=== PATIENT | male | born 1950 | race Caucasian/White ===

== ENCOUNTER 2024-11-04 06:33 | Day surgery (SDC) | payer OTHER, SELFPAY ==
--- NOTE | 2024-11-01 16:13 | HPS.HSE ---
Family Physician
-
Family Physician: Lupis Obrien NP
Chief Complaint
-
SANIA
History of Present Illness
HISTORY OF PRESENT ILLNESS: 73-year-old male with paroxysmal
atrial fibrillation which is symptomatic. His symptoms include
palpitations, shortness of breath and fatigue. He has had several
prior cardioversion but failed to maintain long-term sinus rhythm.
This will be his first PVI. Past medical history is significant for
GERALD to LAD in 2021, hypertension, hyperlipidemia, obesity, active
tobacco abuse, osteoarthritis and suspected sleep apnea. He has
chronic diastolic heart failure with preserved EF. Most recent echo
August 16, 2024 showing LVEF 50-55 percent, with mild to moderate
mitral regurgitation and no significant valve disease. Nuclear
stress test August 28, 2024 at [facility], did not show evidence
of ischemia. He has been admitted to [facility] multiple
occasions with AFib/RVR including October 2023, at which time
arrhythmia precipitated CHF exacerbation. He has failed sotalol and
is currently maintained on amiodarone with metoprolol and
anticoagulated with Eliquis. His [id number] score is 4 secondary
to age, CHF, hypertension and CAD. Chest CT performed
at pre-admission testing identified possible RUSLAN thrombus. SANIA
will be performed prior to PVI to definitively exclude clot.
Medical History
Past Medical History
Past Medical History: Reports Other (see below)
Additional Past Medical History:
1. CAD, GERALD-LAD 08/2021.
2. HFpEF, EF 50-55 percent by echo 08/2024.
3. Obesity, BMI 36.0.
4. Hypertension.
5. Hyperlipidemia.
6. Active tobacco abuse.
7. Suspected obstructive sleep apnea.
8. Osteoarthritis.
9. GERD.
10. Anxiety/depression.
11. IBS, constipation.
.
Past Surgical History: Reports Other (see below)
Additional Past Surgical History:
1. Coronary stents, GERALD to LAD 08/2021.
2. Appendectomy.
3. Right total hip arthroplasty.
Social History
Tobacco: Smoker
Alcohol: Occasional
Family History
Family History: Not pertinent
Allergies / Home Medications
Allergies reflects when Allergies were last updated in [facility].
Home Medications with original date entered in [facility]
Allergy/Medication List:
HOME MEDICATIONS:
1. Amiodarone 200 mg daily.
2. Amlodipine 2.5 mg daily.
3. Eliquis 5 mg b.i.d.
4. Atorvastatin 40 mg at bedtime.
5. Citalopram 10 mg at bedtime.
6. Plavix 75 mg daily.
7. Furosemide 20 mg b.i.d.
8. Linzess 145 mcg daily.
9. Losartan 100 mg daily.
10. Metoprolol succinate 50 mg daily.
11. Pantoprazole 40 mg daily.
ALLERGIES: No known drug allergies
Review of Systems
-
A 12 point ROS was completed and negative except as noted: Yes
Physical Exam
Physical Exam
General: Well Developed and Well Nourished
HEENT: NormoCephalic
Respiratory: Clear and Decreased Breath Sounds
Cardiac: Irregular Rhythm (Heart irregular regular. Rate 82, without murmurs, rubs, or gallops. Carotids without audible bruits. Pulses equal 2+ bilaterally. No peripheral edema. CAROTIDS: Without bruits. )
GI: Soft and Normal Bowel Sounds
Skin: Warm and Dry
Neuro: AO x 3, No Motor Deficits and Cranial Nerves Intact
Impression/Plan
-
DIAGNOSTIC STUDIES 10/31/2024.:
EKG: Atrial fibrillation, ventricular rate 81.
Chest CT: possible RUSLAN thrombus
LABORATORY STUDIES: White blood count 8.6, hemoglobin 15.0,
platelets 211, INR 1.19.
[id number] score 4.
Age +1.
CHF +1.
Hypertension +1.
CAD +1.
IMPRESSION AND PLAN: Persistent symptomatic atrial fibrillation,
scheduled for EP study and ablation. Due to potential RUSLAN thrombus
as identified on CT, we will perform SANIA to definitively exclude clot
prior to EP study. Benefits and risks been
discussed with the patient. These risks are understood and he
wishes to proceed.
== END 2024-11-04 09:21 | disposition home or self-care (01) ==
LOC: CATH 06:33
PROVIDERS: ATTENDING PHYSICIAN Internal Medicine Cardiovascular Disease; FAMILY PHYSICIAN Nurse Practitioner Adult Health; OTHER PHYSICIAN Internal Medicine Interventional Cardiology
DX: I48.0 Paroxysmal atrial fibrillation (principal); I08.3 Combined rheumatic disorders of mitral, aortic and tricuspid valves; I25.10 Atherosclerotic heart disease of native coronary artery without angina pectoris; Z95.5 Presence of coronary angioplasty implant and graft; I11.0 Hypertensive heart disease with heart failure; I50.32 Chronic diastolic (congestive) heart failure; E78.5 Hyperlipidemia, unspecified; E66.9 Obesity, unspecified; Z68.36 Body mass index [BMI] 36.0-36.9, adult; G47.33 Obstructive sleep apnea (adult) (pediatric); F17.200 Nicotine dependence, unspecified, uncomplicated; K21.9 Gastro-esophageal reflux disease without esophagitis; F32.A Depression, unspecified; K58.9 Irritable bowel syndrome, unspecified; M19.90 Unspecified osteoarthritis, unspecified site; Z79.01 Long term (current) use of anticoagulants; Z79.02 Long term (current) use of antithrombotics/antiplatelets
CPT/HCPCS: 93312; 93320; 93325

== ENCOUNTER 2024-11-06 05:54 | Day surgery (SDC) | payer OTHER, SELFPAY ==
[2024-10-31 10:00] VITALS: BMI 36.0
[2024-10-31 10:27] LABS: % Basophils 0.6 % (0-2); % Eosinophils 1.6 % (0-6); % Immature Granulocytes 0.4 % (0-0.5); % Lymphocytes 25.7 % (20.5-51.1); % Monocytes 8.2 % (1.7-9.3); % Neutrophils 63.5 % (42.2-75.2); Absolute Basophils 0.1 10^3/uL (0-0.2); Absolute Eosinophils 0.1 10^3/uL (0-0.7); Absolute Lymphocytes 2.2 10^3/uL (1.2-3.4); Absolute Monocytes 0.7 10^3/uL (0.1-0.6); Absolute Neutrophils 5.4 10^3/uL (1.4-6.5); Hematocrit 43.1 % (39.0-52.0); Mean Corp Hgb Conc. 34.8 g/dL (33.0-37.0); Mean Corpuscular Hgb 30.2 pg (27.0-31.0); Mean Corpuscular Volume 86.7 fL (80.0-94.0); Mean Platelet Volume 10.1 fL (7.4-10.4); Nucleated Red Blood Cells % 0 % (-); Platelet Count 211 10^3/uL (130-400); Red Blood Cell Count 4.97 10^6/uL (4.70-6.10); Red Cell Dist. Width 14.6 % (11.5-14.5); White Blood Cell Count 8.6 10^3/uL (4.8-10.8)
[2024-10-31 10:43] LABS: INR 1.19; PT 15.4 Sec (11.4-14.6)
[2024-10-31 10:59] LABS: ALT (SGPT) 21 U/L (0-50); AST (SGOT) 19 U/L (17-59); Albumin 4.4 g/dl (3.5-5.0); Alkaline Phosphatase 64 U/L (38-126); Blood Urea Nitrogen 29 mg/dl (9-20); Calcium 9.6 mg/dl (8.4-10.2); Carbon Dioxide 31 mmol/L (22-30); Chloride 105 mmol/L (98-107); Estimated Creatinine Clearance 54 ml/min; Glucose 127 mg/dl (70-99); Magnesium 1.8 mg/dl (1.6-2.3); Potassium 4.1 mmol/L (3.5-5.1); Sodium 141 mmol/L (135-145); Total Bilirubin 0.7 mg/dl (0.2-1.3); Total Protein 7.1 g/dl (6.3-8.2); eGFR 58.73
[2024-11-06] VITALS (12 sets, daily range): BP systolic 84–118; BP diastolic 57–85; BMI 36.0
[2024-11-06 08:36] LABS: ACT-LR - POC 334 Seconds (116-155)
[2024-11-06 08:54] LABS: ACT-LR - POC 305 Seconds (116-155)
--- NOTE | 2024-11-06 09:11 | ITS.CL.ABL ---
Registered Respiratory Technician - Ablation
Ablation
Procedure Report:
ELECTROPHYSIOLOGY ABLATION STUDY
DATE:: November 06, 2024�����������������������������REFERRING: Dr. SARITHA Branch
INDICATION: Persistent supraventricular tachycardia in the form of atrial fibrillation.
HISTORY: See H and P.� As above
ANTIARRHYTHMIC DRUG: Amiodarone
PRE-PROCEDURE SANIA: No intracardiac thrombus
PRESENTING RHYTHM: Atrial fibrillation
'TIME-OUT':��called and confirmed.
SEDATION/ANESTHESIA:��provided via the anesthesia department using general anesthesia (LMA).
INTRAVENOUS/ARTERIAL ACCESS:
Right femoral venous - 8Fr
Left femoral venous - 8 Fr, 6 Fr
Ultrasound guidance for bilateral femoral vein access was utilized by me to obtain access with demonstration of normal anatomy
CHADS-VASC Score:
HAS-Bled Score
PROCEDURE:
1.��A decapolar CS catheter was placed within the CS for mapping and pacing.��This was also used as the reference catheter for the 3-D map.
2. The intracardiac ultrasound catheter was positioned in the RA to identify the FO for targeting of transseptal puncture, assist��in identification of the pulmonary vein ostia, monitoring pre and post ablation pulmonary vein flow velocities,
monitoring for 'bubble' formation during RF application as a sign of thermal injury,��and to monitor for pericardial effusion during mapping and ablation procedure.���Left atrial size, LV ejection fraction, and pulmonary vein flows were monitored
pre and post ablation procedure. The other valves were inspected and found to be free of significant regurgitation or stenosis.
3.��Half of the calculated heparin bolus was administered prior to the first transeptal puncture.��Transseptal puncture was performed to diagnose RA and LA pressure so that safety of LA mapping and ablation could be further assessed, and to access
the left atrium and pulmonary veins for mapping and ablation.��This entailed advancing an 16.8 [place] Farad[place] sheath with dilator into the superior vena cava and withdrawing both (monitoring intracardiac ultrasound, fluoroscopy and tip pressure)
with the tip oriented toward the atrial septum.��The fossa ovalis was engaged (indicated by sudden displacement of the sheath tip as well as tenting of the fossa seen on intracardiac ultrasound).��Left atrial access required a pass with the
Brock[place]brough needle extended.��Left atrial catheter position was confirmed by pressure monitoring (RA mean pressure 8 mm Hg and LA mean presure 14 mm Hg), LA saturation (99%),��as well as fluoroscopy.��The sheath was advanced over the dilator and
positioned in the left atrium.��This procedure was repeated for the Agilis sheath.��The remainder of the calculated heparin bolus was administered and heparin was
infused to maintain ACT at 300 -350 seconds throughout the case.
4.��RA pacing was performed via the proximal decapolar poles and LA pacing was performed via the distal decapolr poles.
5. A quadrapolar catheter was first positioned at the His position for His Bundle recording which was tagged via the 3-D Navex sytem, and then passed to the RVA for RV pacing and recording.
6. The grid and Penta spline LIPV, LSPV, RSPV and the RIPV.��
7.��Next, a 3-D map was created using Navex.���A 3-D reconstructed CT image was compared to the 3-D Navex map to assist in anatomic interpretation, mapping and ablation.��The CT image and the NavX image were fused.
8. A total of 55 lesions were given in olive and basket post to the pulmonary veins as well as in flower pose to the roof posterior wall and floor of the left atrium. Entrance block was confirmed in all 4 pulmonary veins after all of in basket
pose this but atrial fibrillation persisted. Flower pauses were then given to the roof line, left atrial posterior wall, and floor line of the left atrium isolating the posterior wall from roof through floor. If atrial fibrillation persisted and
the patient was cardioverted with 1 300 J synchronized biphasic shock. Entrance and exit block in all 4 pulmonary veins as well as the roof posterior wall and floor of the left atrium proper were confirmed and EP study post cardioversion
demonstrated no other inducible supraventricular mechanism for arrhythmia.
9. Normal sinus node and AV diomedes function noted.
TOTAL FLOURO TIME: 12.1 minutes 112 mGy
TOTAL RF DURATION:0 minutes
REVERSAL OF HEPARIN: 35 mg of protamine, slow IV administration
COMPLICATIONS:
None
Intracardiac US shows no pericardial effusion post ablation.
SUMMARY:��
Complex left atrial mapping and ablation.
Isolation of all 4 pulmonary veins as well as the posterior wall as above.
RECOMMENDATIONS:
1. Admit to monitored bed.��
2. Resume anticoagulation
3.��Discontinue amiodarone and continue metoprolol therapy
4.��Out of bed 4 hours
Copy to: Dr. Branch
[2024-11-06] MEDS: TYLENOL 650 MG PO (11:33)
--- NOTE | 2024-11-06 13:31 | W.PN.UPDATE ---
Update Note
Progress Note Update
Pt seen post PFA. Bilat groin sites without ht/bleeding, oob ambulating, urinating without difficulty. Post EKG NSR w/1st deg AVB, no acute changes. Resume eliquis tonight at usual time. Will stop amiodarone at this time. Followup with Dr. Branch as
scheduled. Home later today if groin site/tele remain stable.
== END 2024-11-06 14:00 | disposition home or self-care (01) ==
LOC: CATH 05:54
PROVIDERS: ATTENDING PHYSICIAN Internal Medicine Cardiovascular Disease; FAMILY PHYSICIAN Nurse Practitioner Adult Health; OTHER PHYSICIAN Internal Medicine Interventional Cardiology
DX: I48.19 Other persistent atrial fibrillation (principal); I25.10 Atherosclerotic heart disease of native coronary artery without angina pectoris; I50.32 Chronic diastolic (congestive) heart failure; I11.0 Hypertensive heart disease with heart failure; E78.5 Hyperlipidemia, unspecified; M19.90 Unspecified osteoarthritis, unspecified site; K21.9 Gastro-esophageal reflux disease without esophagitis; F32.A Depression, unspecified; K58.9 Irritable bowel syndrome, unspecified; F17.210 Nicotine dependence, cigarettes, uncomplicated; I47.10 Supraventricular tachycardia, unspecified; I34.0 Nonrheumatic mitral (valve) insufficiency; Z90.49 Acquired absence of other specified parts of digestive tract; Z95.5 Presence of coronary angioplasty implant and graft; Z68.36 Body mass index [BMI] 36.0-36.9, adult; E66.9 Obesity, unspecified; Z79.899 Other long term (current) drug therapy; Z79.02 Long term (current) use of antithrombotics/antiplatelets; Z79.01 Long term (current) use of anticoagulants
CPT/HCPCS: C1732; C1894; C1730; C1892; C1759; 36415; 75572; 80053; 83735; 85025; 85347; 85610; 86850; 86900; 86901; 93005; 93656; 93657; C1733; C1766; Q9967